=== PATIENT | male | born 1985 | race Caucasian/White ===

== ENCOUNTER 2021-12-20 09:11 | Emergency (ER) | payer OTHER ==
[2021-12-20 09:27] VITALS: BP 126/83; PULSE 93; RESP 18; TEMP 96.7; BMI 30.1
[2021-12-20] MEDS ORDERED: TETRACAINE 0.5% HCL 0.6ML DROPPER.BOTTLE OS ONE (10:06)
[2021-12-20] MEDS ORDERED: FLUORESCEIN NA 1 EA STRIP OS ONE (10:07)
[2021-12-20] MEDS ORDERED: TETRACAINE 0.5% OPHTH SOLN 2 ML BOTTLE ONE (10:09)
[2021-12-20] MEDS ORDERED: FLUORESCEIN NA 1 EA STRIP ONE (10:09)
[2021-12-20] MEDS ORDERED: ERYTHROMYCIN 0.5% OPHTHALMIC OINTMENT 3.5 GM TUBE OS ONE (10:15)
[2021-12-20] MEDS ORDERED: ERYTHROMYCIN 0.5% OPHTHALMIC OINTMENT 3.5 GM TUBE ONE (10:17)
== END 2021-12-20 10:40 | disposition home or self-care (01) ==
LOC: JERFT 09:11
DX: H00.14 Chalazion left upper eyelid (principal)
CPT/HCPCS: 99283-25